=== PATIENT | female | born 1985 | race Two or more races ===

== ENCOUNTER 2023-12-15 14:15 | Emergency (ER) | payer MEDICAID, OTHER ==
[~2023-12-15] VITALS: Ht 165.1 cm; Wt 159.0 kg
[2023-12-15 16:00] VITALS: PULSE 81; O2SAT 94
[2023-12-15] MEDS: HYDROcodone-ACET 10/325MG TAB PO ONE (16:04)
[2023-12-15 17:00] VITALS: BP 139/92; PULSE 81; RESP 16; O2SAT 94
[2023-12-15] MEDS ORDERED: CYCL-837 PO (17:00)
[2023-12-15] MEDS ORDERED: NAPR-746 PO (17:00)
== END 2023-12-15 17:32 | disposition home or self-care (01) ==
LOC: ER 14:15 → EDSEX 14:15 → EDBD 14:15 → ER 17:32
DX: M25.571 Pain in right ankle and joints of right foot (principal); M79.641 Pain in right hand; V89.2XXA Person injured in unspecified motor-vehicle accident, traffic, initial encounter; Y93.I9 Activity, other involving external motion; Y92.89 Other specified places as the place of occurrence of the external cause; Y99.8 Other external cause status
CPT/HCPCS: 73130; 73590; 73610